=== PATIENT | male | born 1975 | race Caucasian/White ===

== ENCOUNTER 2025-04-28 06:07 | Day surgery (SDC) | payer OTHER, SELFPAY ==
--- NOTE | 2025-04-27 15:29 | W.PM.DSUDISC ---
Date of service: 04/28/25 Discharge Plan Disposition Patient Disposition: Home Condition: Good Discharge Details Reason For Visit: Screening colonoscopy Attending Provider: Vadim Skinner Primary Care Provider: Unknown,Unknown Home Meds and New Rx's Prescriptions: Continued Ozempic 2 mg/dose (8 mg/3 mL) pen injector 2 mg subcut QWEEK atorvastatin 10 mg tablet 10 mg PO DAILY famotidine 40 mg tablet 40 mg PO DAILY fexofenadine [Aileen Allergy] 60 mg tablet 120 mg PO BID fluticasone propionate 50 mcg/actuation spray,suspension 1 spray intranasal BID Rx Instructions: administer into each nostril Discharge Instructions Instructions: Colon polyps Additional Instructions: Jesus, it was nice to meet you today, and I hope you you are comfortable through the procedure. Things went very smoothly. Your prep was excellent. I did find, and remove, 1 polyp today. It was small, and none of the features are particularly worrisome to the naked eye. I will send this to the pathologist for the review. Once I know the nature of this polyp, my office will be in touch with recommendations for future colonoscopies. If you need anything or have any questions in the meantime, please do not hesitate to call. 1. If tolerated, consume a soft, low fiber diet for 1-2 days. 2[address] Do not drive, drink alcohol, operate machinery, make critical decisions, or do activities that require coordination or balance for 24 hours. 3. Because air was put into your colon during the procedure, expelling air from your rectum (passing gas or farting) is normal. 4. You may not have a bowel movement for 1-3 days because of the colonoscopy prep. This is normal. 5. Go directly to the emergency room if you notice any of the following: Develop chills (warm to touch), or if you have a thermometer and your temperature is above 101 Difficulty breathing or difficultly swallowing Persistent vomiting Severe abdominal pain, other than gas cramps Severe chest pain Black, tarry stools Any bleeding ? exceeding one tablespoon 6. Call your physician if the site where your intravenous was started becomes red, swollen, painful, and warm to touch. 7. Your physician has reviewed your pre-procedure medications. Please continue to take those medications as previously ordered. You will be given specific information/education regarding any changes to your medications before leaving. Stand Alone Forms: Anesthesia Discharge Inst., Flaco Peña (DSU) Activity:: Activity as Tolerated Diet:: As Tolerated Discharge Orders Discharge Orders: Discharge Order (Routine); Ordered 04/27/25 Ordered By: Vadim Skinner DS: Diagnosis Discharge Diagnosis (1) Encounter for screening colonoscopy: Status: Acute Asessment and Plan: Follow-up on polypectomy results
--- NOTE | 2025-04-27 15:30 | COLE_ITS ---
Date of service: 04/28/25 Time of Service: 08:10 Colonoscopy Report Date of procedure: 04/28/25 Pre-op diagnosis general: screening colonoscopy Post-op diagnosis procedure note: other (Colon polyp) Procedure: Colonoscopy with polypectomy Surgeon: Vadim Skinner Anesthesia Type: General:No Airway Estimated blood loss (mL): 5 Pathology: other (0.25 cm pedunculated polyp at 65 cm) Complications: None Disposition: same day Indications: Jesus is a 49-year-old male who needs a screening colonoscopy Prep: Miralax/Dulcolax Procedure Start Time: 07:34 Procedure End Time: 07:59 Retraction Time: 13 Findings: 0.25 cm pedunculated polyp at 65 cm Procedure Description: After the induction of anesthesia, and with the patient in left lateral decubitus position, I began by performing an external anorectal exam.? Perineum and skin were normal, as was the anal verge.? There was no evidence of external hemorrhoids.? Next, I performed a digital rectal exam.? I did not appreciate any abnormal findings.? Next, I advanced a colonoscope into the rectal vault.? I performed retroflexion.? This appeared normal.? Using insufflation, I then advanced the colonoscope beyond the rectal folds and into the sigmoid colon before advancing towards the cecum.? The scope was noted to be in the cecum by identification of the ileocecal valve and appendiceal orifice.? I then began withdrawing the colonoscope using repeated irrigation as necessary for full evaluation of the colonic mucosa. Around 65 cm from the anal verge I identified a 0.25 cm polyp. ?It appeared pedunculated in character. ?I was able to remove this with a cold snare polypectomy. ?I examined the site, and there was minimal bleeding. ?Once this was completed, I continued to withdraw the scope and examine the remainder of the colonic mucosa. Once the scope was withdrawn to the level of the rectum, great care was taken to examine portions of the rectal folds.? Finally, the scope was withdrawn and the patient was brought to the same-day surgery recovery unit as the anesthetic wore off. ?The findings and instructions were shared with the patient prior to discharge. [place] Bowel Prep [place] Bowel Prep Right Colon: 3 Left Colon: 3 Transverse Colon: 3 Total Score: 9
[2025-04-28 06:15] VITALS: BP 140/91; PULSE 86; RESP 18; TEMP 36.5; O2SAT 97
[2025-04-28] MEDS: Lactated Ringers 1,000 ML 80 ML IV (06:37)
--- NOTE | 2025-04-28 07:12 | W.ANESPRE ---
General Info Date of Service Date Performed: 04/28/25 Height: 6 ft 4 in Weight: 166.1 kg Body Mass Index (BMI): 44.5 Surgical Procedure: Operation Date: 04/28/25 07:35 Proposed Procedure Side Surgeon p Jaspreet Skinner MD Meds Allergies and Home Medications Allergies Allergy/AdvReac Type Severity Reaction Status Date / Time No Known Allergies Allergy Verified 04/28/25 06:30 Home Medication ?Medication ?Instructions ?Recorded atorvastatin 10 mg tablet 10 mg PO DAILY 12/21/24 famotidine 40 mg tablet 40 mg PO DAILY 12/21/24 fexofenadine 60 mg tablet (Aileen 120 mg PO BID 12/21/24 Allergy) fluticasone propionate 50 1 spray intranasal BID 12/21/24 mcg/actuation nasal spray,suspension semaglutide 2 mg/dose (8 mg/3 mL) 2 mg subcut QWEEK 12/21/24 subcutaneous pen injector (Ozempic) Current Visit Medications: Current Medications Generic Name Dose Route Start Last Admin Trade Name Freq PRN Reason Stop Dose Admin Ringer's Solution 1,000 mls @ 80 mls/hr 04/28/25 06:00 04/28/25 06:37 IV 04/28/25 23:59 80 mls/hr INFUSION GORGE Administration IV Miscellaneous Supplies 1 each 04/28/25 06:00 Iv Access IV 04/28/25 23:59 DIRECTED GORGE Sodium Chloride 0 ml 04/28/25 06:00 Normal Saline Flush 10 Ml Syr IV 04/28/25 23:59 PRN PRN Sodium Chloride 0 ml 04/28/25 06:00 Normal Saline 10 Ml Vial IJ 04/28/25 23:59 DIRECTED PRN Sterile Water 0 ml 04/28/25 06:00 Water,Injection,Sterile 10 Ml Vial IJ 04/28/25 23:59 DIRECTED PRN PFSH Active Problems Active Problems: Problem Status Onset Code Encounter for screening colonoscopy Acute Z12.11 Borderline hypertension Acute R03.0 Acute stress reaction Acute F43.0 Type 2 diabetes mellitus Acute E11.9 Tobacco Smoking/Tobacco Use Status: Never Alcohol Alcohol Intake: current Alcohol intake frequency: a few times a week Substance Use Substance use: Never Substance use type: does not use Vital Signs and Lab Results Vital Signs Most Recent Vital Signs in EMR: Most Recent Vital Signs Temp Pulse Resp BP Pulse Ox 36.5 C 86 18 140/91 H 97 04/28/25 06:15 04/28/25 06:15 04/28/25 06:15 04/28/25 06:15 04/28/25 06:15 Anesthesia Assessment and Plan Anesthesia History Personal History: No History of General Anesthesia Family History: No Family History of Anesthesia Complications Exercise Tolerance Exercise Tolerance: Metabolic Equivalents>4 Pertinent Negatives Pertinent Negatives: No Major Cardiovascular Symptoms or Complaints, No Major Pulmonary Symptoms or Complaints and No History of CVA/TIA Cardiac & Pulmonary Exam Cardiac Exam: Normal S1/S2 Heart Sounds Pulmonary Exam: Clear Bilateral Breath Sounds Implantable Cardiac Device Does patient have a Pacemaker or an ICD?: No Airway Exam Known Difficult Airway: No Mallampati Class: 3 Mouth Opening: Normal (> 3cm) Thyromental Distance: Greater than 3 cm Neck Range of Motion: Full ROM Neck Circumference: Thick Teeth Condition: Normal Dentition ASA Classification ASA Score: ASA 3 Emergency Case?: No NPO Status NPO Status: NPO Clears >2 hours, Solids >8 hours Anesthesia Plan Resuscitation Status: Full Code Anesthesia Technique: General Anesthesia Airway Planned: Natural Airway Monitors Used: Standard Monitors
[2025-04-28 07:13] VITALS: BMI 44.5
--- NOTE | 2025-04-28 07:52 | BOWEL_PTH ---
PATIENT: Jesus Adams LOC: [facility] U#:[id number] AGE/SX: 49/M ROOM: RE04/28/[address]: Vadim Skinner MD : [id number] BED: DIS: 04/28/2025 SPEC #: [id number] RECD: 04/28/25 10:59 STATUS: JANELLE REQ #: [id number] JM: 04/28/25 07:[address]: Vadim Skinner DEPT: Surgical Specimen RECD BY: Silvia Figueroa ENTERED: 04/28/25 11:00 SP TYPE: Bowel OTHR DR: Unknown,Unknown Tissues: 1 - BIOPSY BOWEL Procedures: GROSS AND MICRO LEVEL 4 Comments: [id number]
[2025-04-28 08:05] VITALS: BP 134/97; PULSE 99; RESP 18; TEMP 36.2; O2SAT 96
--- NOTE | 2025-04-28 08:31 | W.ANESPOSTOP ---
Postoperative Evaluation Date, Time and Location Date Performed: 04/28/25 Time Performed: 08:07 Patient Location: Day Surgery Unit Vital Signs Most Recent Imported Vital Signs: Most Recent Vital Signs Temp Pulse Resp BP Pulse Ox 36.2 C L 99 H 18 134/97 H 96 04/28/25 08:05 04/28/25 08:05 04/28/25 08:05 04/28/25 08:05 04/28/25 08:05 Pain Score Most Recent Pain Score: Most Recent Pain Score Pain Level 0 04/28/25 08:05 Assessment Mental Status: Awake (Alert & Oriented to Patient Baseline) Airway and Respiratory Function: Patent airway with normal (patient baseline) respiratory exam Cardiovascular Function: Hemodynamically Stable Hydration Status: Adequately Hydrated Nausea & Vomiting: No Nausea or Vomiting Pain: Pt. Denies Any Pain Peripheral Nerve Block: Patient did not receive a nerve block
[2025-04-28 08:35] VITALS: BP 131/89; PULSE 85; RESP 16; TEMP 36.3; O2SAT 96
== END 2025-04-28 08:50 | disposition home or self-care (01) ==
LOC: SUR 06:09
PROVIDERS: Visit Provider Surgery
PROC: 0DJD8ZZ Inspection of Lower Intestinal Tract, Via Natural or Artificial Opening Endoscopic (ICD-10-PCS; CPT 45378; principal; 2025-04-28 07:30)
DX: Z12.11 Encounter for screening for malignant neoplasm of colon (principal); E11.9 Type 2 diabetes mellitus without complications; D12.4 Benign neoplasm of descending colon
CPT/HCPCS: 45385; 88305; J2003; J2704